=== PATIENT | female | born 1995 | race Caucasian/White ===

== ENCOUNTER 2016-10-04 14:08 | Emergency (ER) | payer MEDICAID ==
--- NOTE | 2016-10-04 15:15 | EDM.PDOC ---
ED HISTORY OF PRESENT ILLNESS - General Chief Complaint: Respiratory Problem Stated Complaint: FRONT AND BACK RIB PAIN/DIFFICULTY BREATHING Time Seen by Provider: 10/04/16 14:32 Source of Information: Reports: Patient, RN notes reviewed - History of Present Illness INITIAL COMMENTS - FREE TEXT/NARRATIVE: 20 year old female comes in with chest pain. This started yesterday. Worse with deep breathing and certain types of motion. Not currently coughing. Denies nasal or sinus abigail, sore throat, fever or chills. No abd pain or recent vomiting. She does smoke. - Related Data Allergies/ADRs: Allergies Allergy/AdvReac Type Severity Reaction Status Date / Time acetaminophen Allergy Swelling Verified 01/10/16 21:05 fluoxetine HCl [From Prozac] Allergy Swelling Verified 08/08/15 09:20 Latex, Natural Rubber Allergy Swelling Verified 08/08/15 09:20 Sulfa (Sulfonamide Allergy Anaphylactic Verified 08/08/15 09:20 Antibiotics) Shock lorazepam [From Ativan] AdvReac Change Verified 08/08/15 09:58 Mental Status Home Meds: Home Meds Escitalopram Oxalate 30 mg PO DAILY 01/10/16 [History] Naltrexone Microspheres [Vivitrol] 380 mg IM ASDIRECTED 01/10/16 [History] Norgestimate-Ethinyl Estradiol [[place]-Linyah 28 Tablet] 1 each PO DAILY 01/10/16 [History] busPIRone [Buspar] 10 mg PO BID 01/10/16 [History] cloNIDine HCl [Clonidine HCl ER] 0.1 mg PO BEDTIME 01/10/16 [History] hydrOXYzine HCl [Atarax] 50 mg PO BEDTIME 01/10/16 [History] risperiDONE [Risperidone] 0.5 mg PO DAILY 01/10/16 [History] Naproxen [Naprosyn] 500 mg PO Q12HR #14 tablet 10/04/16 [Rx] Past Medical History HEENT History: Reports: Impaired vision Other HEENT History: wears eyeglasses, Gastrointestinal History: Reports: GERD Other Gastrointestinal History: states "usually have to take nausea pills alot. 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 Psychiatric History: Reports: Anxiety, Bipolar, Depression, PTSD Other Psychiatric History: states has been prescribed meds for pysch issues but meds have been D/C'd as is allergic to meds. Endocrine/Metabolic History: Reports: Diabetes, type II Other Endocrine/Metabolic History: denies being on meds, "it bottoms out mostly. " Hematologic History: Reports: Anemia, Blood transfusion(s), Iron deficiency Other Hematologic History: had blood transfusion following delivery. - Infectious Disease History Infectious Disease History: Reports: Other (see below) Other Infectious Disease History: states has had staph infection. - Past Surgical History Cardiovascular Surgical History: Reports: Other (see below) Other Cardiovascular Surgeries/Procedures: ASD repair at age 2.5 GI Surgical History: Reports: Hernia, abdominal Social & Family History - Family History Family Medical History: Noncontributory - Tobacco Use Smoking Status *Q: Current Every Day Smoker Years of Tobacco use: 1 Packs/Tins Daily: 0.5 Second Hand Smoke Exposure: No - Caffeine Use Caffeine Use: Reports: Coffee - Alcohol Use Days Per Week of Alcohol Use: 0 - Recreational Drug Use Recreational Drug Use: Yes Drug Use in Last 12 Months: Yes Recreational Drug Type: Reports: Methamphetamine Recreational Drug Use Frequency: Not Used In Over 6 Months ED ROS GENERAL - Review of Systems Review Of Systems: See Below Constitutional: Denies: fever, chills, diaphoresis HEENT: Denies: Rhinitis, Sinus problem, Throat pain Respiratory: Reports: Pleuritic Chest Pain. Denies: Shortness of Breath, Wheezing, Cough Cardiovascular: Reports: Chest pain GI/Abdominal: Denies: Abdominal pain, Nausea, Vomiting Musculoskeletal: Denies: neck pain, shoulder pain Skin: Reports: no symptoms Neurological: Reports: No Symptoms ED EXAM, GENERAL - Physical Exam Exam: See Below Exam Limited By: No limitations General Appearance: alert, no apparent distress Eye Exam: bilateral eye: PERRL Nose: normal inspection Throat/Mouth: Normal inspection, Normal oropharynx Head: atraumatic. No: facial swelling Neck: supple, full range of motion. No: lymphadenopathy (L), lymphadenopathy (R ) Respiratory/Chest: no respiratory distress, lungs clear, normal breath sounds, other (Tender L sternal border, mild tenderness R sternal border, mild tenderness L anterior upper ribs) Cardiovascular: regular rate, rhythm GI/Abdominal: soft, non tender. No: guarding Back Exam: No: CVA tenderness (L), CVA tenderness (R) Extremities: normal inspection. No: pedal edema, leg pain Neurological: alert, oriented, no motor/sensory deficits Skin Exam: Warm, Dry, Normal color Course - Vital Signs Last Recorded V/S: Last Vital Signs Temp 98.4 F 10/04/16 14:27 Pulse 75 10/04/16 14:27 Resp 18 10/04/16 14:27 BP 106/68 10/04/16 14:27 Pulse Ox 99 10/04/16 16:27 - Re-Assessments/Exams Free Text/Narrative Re-Assessment/Exam: 10/05/16 17:02 breath sounds were normal, sats 100 %, afebrile, other vitals normal, CXR not clinically indicated at this time, quite marked parasternal tenderness, discharge instr. as documented. Patient in full agreeement with plan of treatment at time of discharge. I am aware that she did call in later stating naprosyn "does not work for her". She did not inidicate any of that concern while here in the ED. Naprosyn is the right treatment for costochondritis. Discharge instr. as documented. Departure - Departure Time of Disposition: 15:14 Disposition: Home, Self-Care 01 Condition: fair Clinical Impression: Costochondral chest pain Prescriptions: Naproxen [Naprosyn] 500 mg PO Q12HR #14 tablet Instructions: Costochondritis, [id number] Referrals: Siri Desai NP [Primary Care Provider] - Forms: ED Department Discharge Additional Instructions: avoid heavy lifting. Your chest discomfort is chest wall as discussed. Naprosyn 500 mg twice daily for pain and inflamation. This should gradually get better over the next 3 to 5 days, follow up clinic if not resolving as expected , return to ED as needed.
== END 2016-10-04 15:41 | disposition home or self-care (01) ==
LOC: JD.ED 14:08
CPT/HCPCS: 99283; 99284

== ENCOUNTER 2017-01-06 13:21 | Emergency (ER) | payer MEDICAID ==
[2017-01-06 13:33] VITALS: BP 116/77
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
--- NOTE | 2017-01-07 08:37 | CR ---
Left ankle: Four views of the left ankle were obtained. Comparison: No previous exam. Ankle mortise is symmetric. No fracture, dislocation or other bony abnormality is seen. Impression: 1. No abnormality is identified on left ankle exam. Diagnostic code #1
--- NOTE | 2017-01-07 08:37 | CR ---
Left foot: Four views of the left foot were obtained. Shortened fourth metatarsal is seen which appears developmental. Joint spaces are preserved. No acute fracture, dislocation or other bony abnormality is seen. Impression: 1. Shortened fourth metatarsal compatible with developmental change. 2. Left foot study is otherwise unremarkable. Diagnostic code #2
== END 2017-01-06 14:57 | disposition home or self-care (01) ==
LOC: JD.ED 13:21
DX: S90.122A Contusion of left lesser toe(s) without damage to nail, initial encounter (principal); K21.9 Gastro-esophageal reflux disease without esophagitis; F41.9 Anxiety disorder, unspecified; F31.9 Bipolar disorder, unspecified; E11.9 Type 2 diabetes mellitus without complications; F17.210 Nicotine dependence, cigarettes, uncomplicated; Z86.2 Personal history of diseases of the blood and blood-forming organs and certain disorders involving the immune mechanism; Z98.890 Other specified postprocedural states; Z87.442 Personal history of urinary calculi; Z79.899 Other long term (current) drug therapy; Z88.1 Allergy status to other antibiotic agents; Z88.2 Allergy status to sulfonamides; Z88.6 Allergy status to analgesic agent; Z88.8 Allergy status to other drugs, medicaments and biological substances; W01.0XXA Fall on same level from slipping, tripping and stumbling without subsequent striking against object, initial encounter
CPT/HCPCS: 73610-26-LT; 73610-LT; 73630-26-LT; 73630-LT; 99282; 99284

== ENCOUNTER 2017-03-04 17:30 | Emergency (ER) | payer MEDICAID ==
[2017-03-04 18:18] VITALS: BP 104/69
[2017-03-04] MEDS ORDERED: Sodium Chloride 0.9% 10 ML Syringe FLUSH PRN (19:18)
[2017-03-04] MEDS ORDERED: Sodium Chloride 0.9% 1,000 ML IV ONE (19:18)
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
== END 2017-03-04 21:10 | disposition home or self-care (01) ==
LOC: JD.ED 17:30
DX: R10.31 Right lower quadrant pain (principal); K21.9 Gastro-esophageal reflux disease without esophagitis; F31.9 Bipolar disorder, unspecified; E11.9 Type 2 diabetes mellitus without complications; F17.210 Nicotine dependence, cigarettes, uncomplicated; Z86.2 Personal history of diseases of the blood and blood-forming organs and certain disorders involving the immune mechanism; Z98.890 Other specified postprocedural states; Z87.440 Personal history of urinary (tract) infections; Z88.1 Allergy status to other antibiotic agents; Z88.6 Allergy status to analgesic agent; Z88.2 Allergy status to sulfonamides; Z91.040 Latex allergy status; Z88.8 Allergy status to other drugs, medicaments and biological substances; Z79.899 Other long term (current) drug therapy
CPT/HCPCS: 36415; 80053; 81001; 83690; 84703; 85025; 86140; 96360; 99284; J7040; J7050

== ENCOUNTER 2017-03-27 03:00 | Emergency (ER) | payer MEDICAID ==
[2017-03-27 03:10] VITALS: BP 113/73
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
--- NOTE | 2017-03-28 08:38 | CT ---
Head CT Technique: Multiple axial sections through the brain were obtained. Intravenous contrast was not utilized. Comparison: No prior intracranial imaging. Findings: Ventricles along with basal cisterns and sulci over the convexities are within normal limits for the patient's age. No abnormal parenchymal densities are seen. No evidence of intracranial hemorrhage. No midline shift or mass effect is seen. Bone window settings were reviewed which show the visualized sinuses to appear clear. No acute calvarial abnormality is identified. Impression: 1. Nothing acute is identified on noncontrast head CT exam. Diagnostic code #1 Agree with preliminary report issued by [facility] ([facility] preliminary report dictated on 03/27/17, 5:44 AM Central Time)
== END 2017-03-27 04:58 | disposition home or self-care (01) ==
LOC: JD.ED 03:00
DX: O9A.219 Injury, poisoning and certain other consequences of external causes complicating pregnancy, unspecified trimester (principal); S09.90XA Unspecified injury of head, initial encounter; O99.330 Smoking (tobacco) complicating pregnancy, unspecified trimester; F17.210 Nicotine dependence, cigarettes, uncomplicated; O99.619 Diseases of the digestive system complicating pregnancy, unspecified trimester; O99.340 Other mental disorders complicating pregnancy, unspecified trimester; F41.9 Anxiety disorder, unspecified; F32.9 Major depressive disorder, single episode, unspecified; K21.9 Gastro-esophageal reflux disease without esophagitis; Z88.6 Allergy status to analgesic agent; Z88.1 Allergy status to other antibiotic agents; Z88.2 Allergy status to sulfonamides; Z88.8 Allergy status to other drugs, medicaments and biological substances; Z79.899 Other long term (current) drug therapy; Z87.442 Personal history of urinary calculi; Z87.440 Personal history of urinary (tract) infections; Y04.0XXA Assault by unarmed brawl or fight, initial encounter
CPT/HCPCS: 70450; 70450-26; 81025; 99283; 99284-25

== ENCOUNTER 2017-03-31 18:54 | Emergency (ER) | payer MEDICAID ==
[2017-03-31 19:05] VITALS: BP 111/61
[2017-03-31] MEDS ORDERED: Metoclopramide 10 MG/2 ML SDV IM ONE (19:53)
--- NOTE | 2017-03-31 19:55 | EDM.PDOC ---
ED HPI GENERAL MEDICAL PROBLEM - General Chief Complaint: Gastrointestinal Problem Stated Complaint: Nausea, vomiting Time Seen by Provider: 03/31/17 19:40 Source of Information: Reports: Patient, RN Notes Reviewed History Limitations: Reports: No Limitations - History of Present Illness INITIAL COMMENTS - FREE TEXT/NARRATIVE: 21 year old , 2 Para 1, female presents to the ED with complaints of persistent nausea and vomiting. She has been unable to keep any food or fluids down. She was prescribed Zofran by her OBGYN Dr. Lopez but says it 's not working. She has vomited twice today. No lightheadedness or syncope. She denies diarrhea. She has some mild pelvic cramping but no vaginal bleeding or spotting. No fever or chills. Her LMP was 02/22/17. Lower Abdominal Pain Score (Numeric/FACES): 7 - Related Data Allergies Allergy/AdvReac Type Severity Reaction Status Date / Time acetaminophen Allergy Swelling Verified 03/31/17 19:00 azithromycin Allergy Airway Verified 03/31/17 19:00 Tightness fluoxetine HCl [From Prozac] Allergy Swelling Verified 03/31/17 19:00 Latex, Natural Rubber Allergy Swelling Verified 03/31/17 19:00 Sulfa (Sulfonamide Allergy Anaphylactic Verified 03/31/17 19:00 Antibiotics) Shock lorazepam [From Ativan] AdvReac Change Verified 03/31/17 19:00 Mental Status Home Meds: Home Meds Ondansetron HCl [Zofran] 4 mg PO TID 03/31/17 [History] Past Medical History HEENT History: Reports: Impaired Vision, Sinusitis Other HEENT History: wears eyeglasses, Gastrointestinal History: Reports: GERD Other Gastrointestinal History: states "usually have to take nausea pills alot. 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 Neurological History: Reports: Other (See Below) Other Neuro History: syncopal episode on Tuesday was seen in ED Psychiatric History: Reports: Anxiety, Bipolar, Depression, PTSD Other Psychiatric History: states has been prescribed meds for pysch issues but meds have been D/C'd as is allergic to meds. Endocrine/Metabolic History: Reports: Diabetes, Type II Other Endocrine/Metabolic History: denies being on meds, "it bottoms out mostly. " Hematologic History: Reports: Anemia, Blood Transfusion(s), Iron Deficiency Other Hematologic History: had blood transfusion following delivery. - Infectious Disease History Infectious Disease History: Reports: Other (See Below) Other Infectious Disease History: states has had staph infection. - Past Surgical History Cardiovascular Surgical History: Reports: Other (See Below) Other Cardiovascular Surgeries/Procedures: atrial septal defect repair at age 2.5 year GI Surgical History: Reports: Hernia, Abdominal Social & Family History - Family History Family Medical History: Noncontributory - Tobacco Use Smoking Status *Q: Current Every Day Smoker Years of Tobacco use: 1 Packs/Tins Daily: 0.1 Second Hand Smoke Exposure: No - Caffeine Use Caffeine Use: Reports: Soda - Alcohol Use Days Per Week of Alcohol Use: 0 - Recreational Drug Use Recreational Drug Use: No Drug Use in Last 12 Months: Yes Recreational 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 Denies: Abdominal Pain, Constipation, Diarrhea : Reports: Other (pelvic cramping ) ED EXAM - Physical Exam Exam: See Below Exam Limited By: No Limitations General Appearance: Alert, WD/WN, No Apparent Distress Respiratory/Chest: No Respiratory Distress, Lungs Clear, Normal Breath Sounds Cardiovascular: Regular Rate, Rhythm GI/Abdominal Exam: Normal Bowel Sounds, Soft, Non-Tender Neurological: Alert, Oriented, Normal Cognition Course - Vital Signs Last Recorded V/S: Last Vital Signs Temp 97.5 F 03/31/17 19:02 Pulse 61 03/31/17 19:02 Resp 18 03/31/17 19:02 BP 111/61 03/31/17 19:02 Pulse Ox 99 03/31/17 19:02 Orthostatic Blood Pressure [ 106/64 Standing] Orthostatic Blood Pressure [ 104/65 Sitting] Orthostatic Blood Pressure [ 108/63 Supine] - Orders/Labs/Meds Orders: Active Orders 24 hr Category Date Time Status Orthostatic Vital Signs [RC] ASDIRECTED Care 03/31/17 19:54 Active Meds: Medications Discontinued Medications Generic Name Dose Route Start Last Admin Trade Name Freq PRNikko Reason Stop Dose Admin Metoclopramide HCl 7.5 mg 03/31/17 19:53 03/31/17 20:05 Reglan IM 03/31/17 19:54 7.5 mg ONETIME ONE Administration - Re-Assessments/Exams Free Text/Narrative Re-Assessment/Exam: Orthostatic vital signs are WNL, therefore IV fluids are not indicated. She will be given Reglan 7.5mg IM x1 dose. She is to f/u with her OBGYN tomorrow for recheck. Discharge instructions as documented. Departure - Departure Time of Disposition: 20:17 Disposition: Home, Self-Care 01 Condition: Good Clinical Impression: Nausea and vomiting during - Discharge Information Instructions: Nausea and Vomiting, Adult, [id number] Referrals: Mauricio Lopez MD [Primary Care Provider] - Forms: ED Department Discharge Additional Instructions: Your vital signs are stable, therefore you do not require IV fluids Continue your Zofran as prescribed Follow-up with your OBGYN tomorrow Drink plenty of fluids this evening Rest Eat bland diet - My Orders Last 24 Hours: My Active Orders 03/31/17 19:54 Orthostatic Vital Signs [RC] ASDIRECTED - Assessment/Plan Last 24 Hours: My Active Orders 03/31/17 19:54 Orthostatic Vital Signs [RC] ASDIRECTED
== END 2017-03-31 20:27 | disposition home or self-care (01) ==
LOC: JD.ED 18:54
DX: O21.9 Vomiting of pregnancy, unspecified (principal); O99.331 Smoking (tobacco) complicating pregnancy, first trimester; Z3A.01 Less than 8 weeks gestation of pregnancy
CPT/HCPCS: 96372; 99283; J2765

== ENCOUNTER 2017-05-11 18:03 | Emergency (ER) | payer MEDICAID ==
[2017-05-11 18:20] VITALS: BP 101/70
[2017-05-11] MEDS ORDERED: ClonazePAM 0.5 MG Tab PO ONE (19:39)
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
== END 2017-05-11 20:19 | disposition home or self-care (01) ==
LOC: JD.ED 18:03
DX: O99.89 Other specified diseases and conditions complicating pregnancy, childbirth and the puerperium (principal); R10.31 Right lower quadrant pain; M54.5 Low back pain; O24.111 Pre-existing type 2 diabetes mellitus, in pregnancy, first trimester; E11.9 Type 2 diabetes mellitus without complications; Z86.2 Personal history of diseases of the blood and blood-forming organs and certain disorders involving the immune mechanism; Z87.891 Personal history of nicotine dependence; Z3A.11 11 weeks gestation of pregnancy; Z88.1 Allergy status to other antibiotic agents; Z88.6 Allergy status to analgesic agent; Z88.2 Allergy status to sulfonamides; Z88.8 Allergy status to other drugs, medicaments and biological substances
CPT/HCPCS: 99282; 99284

== ENCOUNTER 2017-05-28 11:20 | Emergency (ER) | payer MEDICAID ==
[2017-05-28 11:32] VITALS: BP 112/75
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
== END 2017-05-28 12:26 | disposition home or self-care (01) ==
LOC: JD.ED 11:20
DX: O99.611 Diseases of the digestive system complicating pregnancy, first trimester (principal); K02.9 Dental caries, unspecified; Z88.6 Allergy status to analgesic agent; Z88.1 Allergy status to other antibiotic agents; Z91.040 Latex allergy status; Z88.2 Allergy status to sulfonamides; Z3A.14 14 weeks gestation of pregnancy
CPT/HCPCS: 99283

== ENCOUNTER 2017-05-29 18:30 | Emergency (ER) | payer MEDICAID ==
[2017-05-29 18:55] VITALS: BP 105/74
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
== END 2017-05-29 20:15 | disposition home or self-care (01) ==
LOC: JD.ED 18:30
DX: O99.89 Other specified diseases and conditions complicating pregnancy, childbirth and the puerperium (principal); R51 Headache; Z88.8 Allergy status to other drugs, medicaments and biological substances; Z91.040 Latex allergy status; Z88.2 Allergy status to sulfonamides; Z88.1 Allergy status to other antibiotic agents; Z3A.15 15 weeks gestation of pregnancy
CPT/HCPCS: 99283; 99284

== ENCOUNTER 2017-06-17 21:30 | Emergency (ER) | payer MEDICAID ==
[2017-06-17 21:41] VITALS: BP 128/87
[2017-06-17] MEDS ORDERED: Penicillin V Potassium 500 MG Tab PO ONE (22:43)
--- NOTE | 2017-06-17 22:49 | EDM.PDOC ---
ED HPI GENERAL MEDICAL PROBLEM - General Chief Complaint: ENT Problem Stated Complaint: CLOSE TO 5 MONTHS PG/TOOTHACHE Time Seen by Provider: 06/17/17 22:01 Source of Information: Reports: Patient, RN Notes Reviewed History Limitations: Reports: No Limitations - History of Present Illness INITIAL COMMENTS - FREE TEXT/NARRATIVE: The patient states that she developed upper right dental pain this morning. She states that it radiates to her right ear. No recent oral drainage or fever. She states that she has had similar symptoms in the past, due to cavities. The patient states that she will be 5 months gestation on 07/11/2017. She states that she took Tylenol earlier today. The patient's PCP is Yenny Weiss. Her Agriculture Internship is Dr. Mauricio Lopez. Right Tooth/Teeth Pain Score (Numeric/FACES): 10 - Related Data Allergies Allergy/AdvReac Type Severity Reaction Status Date / Time azithromycin Allergy Airway Verified 06/17/17 21:41 Tightness fluoxetine HCl [From Prozac] Allergy Swelling Verified 06/17/17 21:41 Latex, Natural Rubber Allergy Swelling Verified 06/17/17 21:41 Sulfa (Sulfonamide Allergy Anaphylactic Verified 06/17/17 21:41 Antibiotics) Shock lorazepam [From Ativan] AdvReac Change Verified 06/17/17 21:41 Mental Status Home Meds: Home Meds Ondansetron HCl [Zofran] 4 mg PO TID PRN 03/31/17 [History] Ped Multivit #43/Iron Fumarate [Flintstones Complete Chew Tab] 1 tab PO DAILY [History] Penicillin V Potassium 1 tab PO Q6HR #40 tab 06/17/17 [Rx] Past Medical History HEENT History: Reports: Impaired Vision Other HEENT History: wears eyeglasses Gastrointestinal History: Reports: GERD (untreated) Genitourinary History: Reports: Renal Calculus 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: Reports: : 2 Para: 1 Psychiatric History: Reports: Anxiety (untreated), Bipolar (untreated), Depression (untreated), PTSD (untreated) Hematologic History: Reports: Blood Transfusion(s) (following delivery) - Past Surgical History Cardiovascular Surgical History: Reports: Other (See Below) (ASD closure at 3 years old) GI Surgical History: Reports: Hernia, Abdominal (x 2) Social & Family History - Family History Family Medical History: Noncontributory - Tobacco Use Smoking Status *Q: Never Smoker Second Hand Smoke Exposure: Yes - Caffeine Use Caffeine Use: Reports: None Other Caffeine Use: 1 glass/day - Alcohol Use Alcohol Use History: Yes Alcohol Use Frequency: Socially - Recreational Drug Use Recreational Drug Use: Yes Drug Use in Last 12 Months: Yes Recreational Drug Type: Reports: Methamphetamine (last = 09/10/2016) - Living Situation & Occupation Living situation: Reports: (), with Family Occupation: Unemployed ED ROS ENT - Review of Systems Review Of Systems: See Below Constitutional: Reports: No Symptoms HEENT: Reports: No Symptoms Respiratory: Reports: No Symptoms Endocrine: Reports: No Symptoms GI/Abdominal: Reports: Nausea, Vomiting : Reports: No Symptoms Musculoskeletal: Reports: No Symptoms Skin: Reports: No Symptoms Neurological: Reports: No Symptoms Psychiatric: Reports: No Symptoms Hematologic/Lymphatic: Reports: No Symptoms Immunologic: Reports: No Symptoms ED EXAM, ENT - Physical Exam Exam: See Below Exam Limited By: No Limitations General Appearance: Alert, WD/WN, No Apparent Distress Eye Exam: Bilateral Eye: Normal Inspection Ears: Normal External Exam, Normal Canal, Hearing Grossly Normal, Normal TMs Nose: Normal Inspection, Normal Mucousa, No Blood Mouth/Throat: Normal Inspection, Normal Gums, Normal Lips, Normal Oropharynx, Other (Teeth #1, 2 with fillings. Teeth 14, 15 with fillings. Tooth #30, 31 with fillings. No gingival swelling or pointing seen.) Head: Atraumatic, Normocephalic Neck: Normal Inspection, Supple, Non-Tender, Full Range of Motion. No: Lymphadenopathy (L), Lymphadenopathy (R) Course - Vital Signs Last Recorded V/S: Last Vital Signs Temp 37.5 C 06/17/17 21:39 Pulse 72 06/17/17 21:39 Resp 16 06/17/17 21:39 BP 128/87 06/17/17 21:39 Pulse Ox 97 06/17/17 21:39 - Orders/Labs/Meds Meds: Medications Discontinued Medications Generic Name Dose Route Start Last Admin Trade Name Freq PRN Reason Stop Dose Admin Penicillin V Potassium 500 mg 06/17/17 22:43 06/17/17 22:51 Veetids PO 06/17/17 22:44 500 mg ONETIME ONE Administration - Re-Assessments/Exams Free Text/Narrative Re-Assessment/Exam: 06/17/17 22:45 The patient is complaining of pain to teeth #1 and 2, both of which appear to have fillings. I do not see any obvious infection. Nevertheless, I will treat her with oral penicillin. Because she is , the only pain medication that she can safely take is Tylenol. I will have her follow-up with a dentist this coming week. Departure - Departure Time of Disposition: 22:46 Disposition: Home, Self-Care 01 Condition: Good Clinical Impression: Dentalgia - Discharge Information Prescriptions: Penicillin V Potassium 1 tab PO Q6HR #40 tab Instructions: Dental Caries Referrals: Mauricio Lopez MD [Primary Care Provider] - Forms: ED Department Discharge Additional Instructions: You were seen in the emergency room for upper right dental pain. On examination, no obvious infection is found, however, you have been started on the antibiotic penicillin. Take one tablet every 6 hours, as prescribed. Take [id number] Tylenol as needed for pain. It is important that you follow up with a dentist this coming week. We recommend that you notify the office of Dr. Mauricio Lopez of your ER visit and penicillin prescription. If any other problems, please do not hesitate to return to the ER.
== END 2017-06-17 22:56 | disposition home or self-care (01) ==
LOC: JD.ED 21:30
DX: O99.612 Diseases of the digestive system complicating pregnancy, second trimester (principal); K08.89 Other specified disorders of teeth and supporting structures; Z77.22 Contact with and (suspected) exposure to environmental tobacco smoke (acute) (chronic); Z88.1 Allergy status to other antibiotic agents; Z88.2 Allergy status to sulfonamides; Z88.8 Allergy status to other drugs, medicaments and biological substances; Z91.040 Latex allergy status; Z3A.20 20 weeks gestation of pregnancy
CPT/HCPCS: 99282; A9270; 99283

== ENCOUNTER 2017-11-08 18:36 | Inpatient (IN) | payer MEDICAID ==
[~2017-11-08 18:36] MED LIST: Bupivacaine 0.25% 10 ML SDV ONE; ePHEDrine 50 MG/ML SDV ONE
[2017-11-08] MEDS ORDERED: Sodium Chloride 0.9% 10 ML Syringe FLUSH PRN (19:08)
[2017-11-08] MEDS ORDERED: Oxytocin/Lactated Ringers 10 UNIT/1,000 ML BAG IV SCH (19:15)
[2017-11-08] MEDS: Lactated Ringers 1,000 ML IV SCH ×3 (19:26→21:36)
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
[2017-11-08] MEDS ORDERED: diphenhydrAMINE 50 MG/ML SDV IVPUSH PRN (19:59)
[2017-11-08] MEDS ORDERED: Ondansetron 4 MG/2 ML SDV IVPUSH PRN (19:59)
[2017-11-08] MEDS ORDERED: fentaNYL 100 MCG/2 ML SDV EPIDUR PRN (19:59)
[2017-11-08] MEDS ORDERED: Bupivacaine/fentaNYL/NS 100 ML Bag EPIDUR SCH (20:00)
[2017-11-08] MEDS ORDERED: ePHEDrine 50 MG/ML SDV IVPUSH PRN (20:00)
--- NOTE | 2017-11-08 21:34 | PCM.PREANE ---
Preanesthetic Assessment - Anesthesia/Transfusion/Family Hx Anesthesia History: Prior Anesthesia Without Reaction Family History of Anesthesia Reaction: No - Review of Systems General: No Symptoms Pulmonary: No Symptoms Cardiovascular: No Symptoms Gastrointestinal: No Symptoms Neurological: No Symptoms Other: Reports: Depression, Anxiety (Bipolar) - Physical Assessment Pulse: 99 Blood Pressure: 131/86 Vital Signs: Last Vital Signs Temp Pulse 99 11/08/17 20:00 Resp BP 131/86 11/08/17 20:00 Pulse Ox Height: 1.5 m Weight: 67.585 kg ASA Class: 2 Mental Status: Alert & Oriented x3 Airway Class: Mallampati = 1 Dentition: Reports: Normal Dentition Thyro-Mental Finger Breadths: 3 Mouth Opening Finger Breadths: 3 ROM/Head Extension: Full Lungs: Clear to Auscultation, Normal Respiratory Effort Cardiovascular: Regular Rate, Regular Rhythm - Lab Values: Laboratory Last Values WBC 15.46 K/mm3 (3.98-10.04) H 11/08/17 19:25 RBC 4.29 M/mm3 (3.98-5.22) 11/08/17 19:25 Hgb 12.2 gm/L (11.2-15.7) 11/08/17 19:25 Hct 36.7 % (34.1-44.9) 11/08/17 19:25 MCV 85.5 fl (79.4-94.8) 11/08/17 19:25 MCH 28.4 pg (25.6-32.2) 11/08/17 19:25 MCHC 33.2 g/dl (32.2-35.5) 11/08/17 19:25 RDW Std Deviation 40.9 fL (36.4-46.3) 11/08/17 19:25 Plt Count 203 K/mm3 (182-369) 11/08/17 19:25 MPV 11.3 fl (9.4-12.3) 11/08/17 19:25 Sodium 134 mEq/L (136-145) L 11/08/17 19:25 Potassium 4.0 mEq/L (3.5-5.1) 11/08/17 19:25 Chloride 101 mEq/L (98-107) 11/08/17 19:25 Carbon Dioxide 24 mEq/L (21-32) 05/01/18 19:25 Anion Gap 13.0 (5-15) 11/08/17 19:25 BUN 6 mg/dL (7-18) L 11/08/17 19:25 Creatinine 0.8 mg/dL (0.55-1.02) 11/08/17 19:25 Est Cr Clr Drug Dosing 79.90 mL/min 11/08/17 19:25 Estimated GFR (MDRD) > 60 mL/min (>60) 11/08/17 19:25 BUN/Creatinine Ratio 7.5 (14-18) L 11/08/17 19:25 Glucose 89 mg/dL (74-106) 11/08/17 19:25 Calcium 8.9 mg/dL (8.5-10.1) 11/08/17 19:25 Total Bilirubin 0.3 mg/dL (0.2-1.0) 11/08/17 19:25 AST 15 U/L (15-37) 11/08/17 19:25 ALT 12 U/L (14-59) L 11/08/17 19:25 Alkaline Phosphatase 160 U/L (46-116) H 11/08/17 19:25 Lactate Dehydrogenase 142 U/L (81-234) 11/08/17 19:25 Total Protein 7.2 g/dl (6.4-8.2) 11/08/17 19:25 Albumin 2.9 g/dl (3.4-5.0) L 11/08/17 19:25 Globulin 4.3 gm/dL 11/08/17 19:25 Albumin/Globulin Ratio 0.7 (1-2) L 11/08/17 19:25 - Allergies Allergies/Adverse Reactions: Allergies Allergy/AdvReac Type Severity Reaction Status Date / Time azithromycin Allergy Airway Verified 06/17/17 21:41 Tightness fluoxetine HCl [From Prozac] Allergy Swelling Verified 06/17/17 21:41 Latex, Natural Rubber Allergy Swelling Verified 06/17/17 21:41 Sulfa (Sulfonamide Allergy Anaphylactic Verified 06/17/17 21:41 Antibiotics) Shock lorazepam [From Ativan] AdvReac Change Verified 06/17/17 21:41 Mental Status - Acknowledgements Anesthesia Type Planned: Epidural Pt an Appropriate Candidate for the Planned Anesthesia: Yes Alternatives and Risks of Anesthesia Discussed w Pt/Guardian: Yes Pt/Guardian Understands and Agrees with Anesthesia Plan: Yes PreAnesthesia Questionnaire HEENT History: Reports: Impaired Vision Other HEENT History: wears eyeglasses Cardiovascular History: Reports: Congenital Septal Defect (Repaired at 2.5 years.) Gastrointestinal History: Reports: GERD Other Gastrointestinal History: states "usually have to take nausea pills alot. 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 Neurological History: Reports: Other (See Below) Other Neuro History: syncopal episode 04/2017 Psychiatric History: Reports: Anxiety, Bipolar, Depression, PTSD Other Psychiatric History: states has been prescribed meds for pysch issues but meds have been D/C'd as is allergic to meds. Other Endocrine/Metabolic History: hypoglycemic Hematologic History: Reports: Blood Transfusion(s) (following delivery) Other Hematologic History: had blood transfusion following delivery. - Infectious Disease History Infectious Disease History: Reports: Other (See Below) Other Infectious Disease History: states has had staph infection. - Past Surgical History Cardiovascular Surgical History: Reports: Other (See Below) (ASD closure when 3 years old) GI Surgical History: Reports: Hernia, Abdominal (Hiatal repair x 2) - SUBSTANCE USE Smoking Status *Q: Never Smoker Tobacco Use Within Last Twelve Months: Other (See Below) Second Hand Smoke Exposure: Yes Days Per Week of Alcohol Use: 0 Recreational Drug Use History: Yes Recreational Drug Type: Reports: Methamphetamine (last = 09/10/2016) Recreational Drug Last Use: 09/10/2016 - HOME MEDS Home Medications: Home Meds Ped Multivit #43/Iron Fumarate [Flintstones Complete Chew Tab] 1 tab PO DAILY [History] - CURRENT (IN HOUSE) MEDS Current Meds: Current Medications Diphenhydramine HCl (Benadryl) 25 mg IVPUSH Q6H PRN PRN Reason: Pruritis Ephedrine Sulfate (Ephedrine Sulfate) 5 mg IVPUSH ASDIRECTED PRN PRN Reason: Hypotension Fentanyl (Sublimaze) 100 mcg EPIDUR ONETIME PRN PRN Reason: Pain Last Admin: 11/08/17 20:29 Dose: 100 mcg Fentanyl/Bupivacaine HCl (Fentanyl/Bupivacaine/Ns 2 Mcg-0.125% 100 Ml) 100 ml EPIDUR ASDIRECTED [facility] Last Admin: 11/08/17 20:29 Dose: 100 ml Lactated Ringer's (Ringers, Lactated) 1,000 mls @ 100 mls/hr IV ASDIRECTED [facility] Last Admin: 11/08/17 20:22 Dose: 999 mls/hr Oxytocin/Lactated Ringer's (Pitocin In Lr 10 Units/1,000 Ml) 10 unit in 1,000 mls @ 3,000 mls/hr IV TITRATE BRAY[facility]; Protocol Ondansetron HCl (Zofran) 4 mg IVPUSH ONETIME PRN PRN Reason: Nausea/Vomiting Sodium Chloride (Saline Flush) 10 ml FLUSH ASDIRECTED PRN PRN Reason: Keep Vein Open
[2017-11-09] MEDS ORDERED: Lidocaine 1% 50 ML MDV INJECT STA (00:01)
--- NOTE | 2017-11-09 00:21 | PCM.DEL ---
L & D Note - General Info Date of Service: 11/08/17 Mother's Due Date: 11/27/17 - Delivery Note Labor: Spontaneous Delivery Outcome: Livebirth Infant Delivery Method: Spontaneous Vaginal Delivery-Single Presentation: Left Occiput Anterior (NANDO) Nuchal Cord: None Anesthesia Type: Local, Epidural Anesthetic: Lidocaine (Xylocaine) 1% Plain Local Anesthetic Volume: Other (8 cc) Amniotic Fluid Description: Clear Episiotomy Type: None Laceration: 1st Degree (Midline perineal and right periurethral repaired with 4- 0 Vicryl) Suture type: Vicryl Suture size: 4-0 Placenta: Intact, Spontaneous Cord: 3 Vessels Estimated Blood Loss: 300 Resuscitation Needed: Yes [place]: Bulb Syringe, Stimulated, Warmed, Colman Used, Warmer Used Provider: Mauricio Lopez Score 1 min: 7 Score 5 min: 8 Second Stage Interventions: Reports: Pushing Effectively, Pushing, Pulls Own Legs Back Delivery Comments (Free Text/Narrative):: Stage I: Leelee Oliva was admitted for spontaneous labor. On admission her cervix was dilated to 5 centimeters. She was GBS negative. She was given an epidural for anesthesia. She had artificial rupture membranes with clear fluid. She continued to labor spontaneously and progressed to complete and pushing. Stage II: On 11/08/2017 she had a normal vaginal delivery of a live male infant at 2343. Apgars of 7 & 8. Weight of 3630 g (8 lbs 0 oz). Length of 21 inches. There was no nuchal cord. Infant was delivered in NANDO position. The cord was doubly clamped and cut by myself after 30 seconds. Infant was placed on mother' s abdomen initially but taken to the warmer for additional resuscitation after infant started having some retractions with breathing. Stage III: She had a spontaneous delivery of an intact placenta in Aysha presentation. Three vessel cord. She was given pitocin and fundal massage. She had a first-degree midline perineal and right periurethral laceration that were repaired with running sutures of 4-0 Vicryl. She was given local injection of 8 mL of 1% lidocaine to the right periurethral laceration prior to repair. Mom and baby were stable to recovery. EBL of 300 mL. Mauricio Lopez MD 12:21 AM 11/09/2017 - Patient Data Vitals - Most Recent: Last Vital Signs Temp Pulse 89 11/08/17 22:30 Resp BP 125/72 11/08/17 22:30 Pulse Ox 99 11/08/17 22:00 Weight - Most Recent: 67.585 kg Lab Results Last 24 Hours: Laboratory Results - last 24 hr 11/08/17 11/08/17 11/08/17 Range/Units 19:25 19:25 21:30 WBC 15.46 H (3.98-10.04) K/mm3 RBC 4.29 (3.98-5.22) M/mm3 Hgb 12.2 (11.2-15.7) gm/L Hct 36.7 (34.1-44.9) % MCV 85.5 (79.4-94.8) fl MCH 28.4 (25.6-32.2) pg MCHC 33.2 (32.2-35.5) g/dl RDW Std Deviation 40.9 (36.4-46.3) fL Plt Count 203 (182-369) K/mm3 MPV 11.3 (9.4-12.3) fl Sodium 134 L (136-145) mEq/L Potassium 4.0 (3.5-5.1) mEq/L Chloride 101 (98-107) mEq/L Carbon Dioxide 24 (21-32) mEq/L Anion Gap 13.0 (5-15) BUN 6 L (7-18) mg/dL Creatinine 0.8 (0.55-1.02) mg/dL Est Cr Clr Drug Dosing 79.90 mL/min Estimated GFR (MDRD) > 60 (>60) mL/min BUN/Creatinine Ratio 7.5 L (14-18) Glucose 89 (74-106) mg/dL Calcium 8.9 (8.5-10.1) mg/dL Total Bilirubin 0.3 (0.2-1.0) mg/dL AST 15 (15-37) U/L ALT 12 L (14-59) U/L Alkaline Phosphatase 160 H (46-116) U/L Lactate Dehydrogenase 142 (81-234) U/L Total Protein 7.2 (6.4-8.2) g/dl Albumin 2.9 L (3.4-5.0) g/dl Globulin 4.3 gm/dL Albumin/Globulin Ratio 0.7 L (1-2) Ur Random Creatinine 16.8 L (30.0-125.0) mg/dL U Random Total Protein < 6.0 (0.0-11.8) mg/dL Protein/Creatinin Ratio TNP Urine Opiates Screen (NEGATIVE) Ur Buprenorphine Scrn (NEGATIVE) Ur Oxycodone Screen (NEGATIVE) Urine Methadone Screen (NEGATIVE) Ur Propoxyphene Screen (NEGATIVE) Ur Barbiturates Screen (NEGATIVE) Ur Tricyclics Screen (NEGATIVE) Ur Phencyclidine Scrn (NEGATIVE) Ur Amphetamine Screen (NEGATIVE) U Methamphetamines Scrn (NEGATIVE) U Benzodiazepines Scrn (NEGATIVE) U Cocaine Metab Screen (NEGATIVE) U Marijuana (THC) Screen (NEGATIVE) 11/08/17 Range/Units 21:30 WBC (3.98-10.04) K/mm3 RBC (3.98-5.22) M/mm3 Hgb (11.2-15.7) gm/L Hct (34.1-44.9) % MCV (79.4-94.8) fl MCH (25.6-32.2) pg MCHC (32.2-35.5) g/dl RDW Std Deviation (36.4-46.3) fL Plt Count (182-369) K/mm3 MPV (9.4-12.3) fl Sodium (136-145) mEq/L Potassium (3.5-5.1) mEq/L Chloride (98-107) mEq/L Carbon Dioxide (21-32) mEq/L Anion Gap (5-15) BUN (7-18) mg/dL Creatinine (0.55-1.02) mg/dL Est Cr Clr Drug Dosing mL/min Estimated GFR (MDRD) (>60) mL/min BUN/Creatinine Ratio (14-18) Glucose (74-106) mg/dL Calcium (8.5-10.1) mg/dL Total Bilirubin (0.2-1.0) mg/dL AST (15-37) U/L ALT (14-59) U/L Alkaline Phosphatase (46-116) U/L Lactate Dehydrogenase (81-234) U/L Total Protein (6.4-8.2) g/dl Albumin (3.4-5.0) g/dl Globulin gm/dL Albumin/Globulin Ratio (1-2) Ur Random Creatinine (30.0-125.0) mg/dL U Random Total Protein (0.0-11.8) mg/dL Protein/Creatinin Ratio Urine Opiates Screen Negative (NEGATIVE) Ur Buprenorphine Scrn Negative (NEGATIVE) Ur Oxycodone Screen Negative (NEGATIVE) Urine Methadone Screen Negative (NEGATIVE) Ur Propoxyphene Screen Negative (NEGATIVE) Ur Barbiturates Screen Negative (NEGATIVE) Ur Tricyclics Screen Negative (NEGATIVE) Ur Phencyclidine Scrn Negative (NEGATIVE) Ur Amphetamine Screen Negative (NEGATIVE) U Methamphetamines Scrn Negative (NEGATIVE) U Benzodiazepines Scrn Negative (NEGATIVE) U Cocaine Metab Screen Negative (NEGATIVE) U Marijuana (THC) Screen Negative (NEGATIVE) Med Orders - Current: Current Medications Diphenhydramine HCl (Benadryl) 25 mg IVPUSH Q6H PRN PRN Reason: Pruritis Ephedrine Sulfate (Ephedrine Sulfate) 5 mg IVPUSH ASDIRECTED PRN PRN Reason: Hypotension Fentanyl (Sublimaze) 100 mcg EPIDUR ONETIME PRN PRN Reason: Pain Last Admin: 11/08/17 20:29 Dose: 100 mcg Fentanyl/Bupivacaine HCl (Fentanyl/Bupivacaine/Ns 2 Mcg-0.125% 100 Ml) 100 ml EPIDUR ASDIRECTED [facility] Last Admin: 11/08/17 20:29 Dose: 100 ml Lactated Ringer's (Ringers, Lactated) 1,000 mls @ 100 mls/hr IV ASDIRECTED [facility] Last Admin: 11/08/17 21:36 Dose: 999 mls/hr Oxytocin/Lactated Ringer's (Pitocin In Lr 10 Units/1,000 Ml) 10 unit in 1,000 mls @ 3,000 mls/hr IV TITRATE BRAYAN; Protocol Last Admin: 11/08/17 23:46 Dose: 500 munits/min, 3,000 mls/hr Ondansetron HCl (Zofran) 4 mg IVPUSH ONETIME PRN PRN Reason: Nausea/Vomiting Sodium Chloride (Saline Flush) 10 ml FLUSH ASDIRECTED PRN PRN Reason: Keep Vein Open Discontinued Medications Lidocaine HCl (Xylocaine 1%) 50 ml INJECT NOW STA Stop: 11/09/17 00:02 - Problem List & Annotations (1) 37 weeks gestation of SNOMED Code(s): 71880141 Code(s): Z3A.37 - 37 WEEKS GESTATION OF Status: Acute Current Visit: Yes (2) Rh negative status during SNOMED Code(s): 360264453 Code(s): O09.899 - SUPERVISION OF OTHER HIGH RISK PREGNANCIES, UNSP TRIMESTER ; Z67.91 - UNSPECIFIED BLOOD TYPE, RH NEGATIVE Status: Acute Current Visit: Yes (3) Bipolar 1 disorder SNOMED Code(s): 675754035 Code(s): F31.9 - BIPOLAR DISORDER, UNSPECIFIED Status: Acute Current Visit: Yes (4) Anxiety during , antepartum SNOMED Code(s): 14224687 Code(s): O99.340 - OTH MENTAL DISORDERS COMPLICATING , UNSP TRIMESTER; F41.9 - ANXIETY DISORDER, UNSPECIFIED Status: Acute Current Visit : Yes (5) Depression affecting SNOMED Code(s): 19537925626217 Code(s): O99.340 - OTH MENTAL DISORDERS COMPLICATING , UNSP TRIMESTER; F32.9 - MAJOR DEPRESSIVE DISORDER, SINGLE EPISODE, UNSPECIFIED Status: Acute Current Visit: Yes (6) HSV-2 seropositive SNOMED Code(s): 932962725 Code(s): R76.8 - OTHER SPECIFIED ABNORMAL IMMUNOLOGICAL FINDINGS IN SERUM Status: Acute Current Visit: Yes (7) History of maternal blood transfusion, currently SNOMED Code(s): 857398820 Code(s): O09.299 - SUPRVSN OF PREG W POOR REPRODCTV OR OBSTET HISTORY, UNSP TRI Status: Acute Current Visit: Yes (8) Vaginal delivery SNOMED Code(s): 863134867 Code(s): O80 - ENCOUNTER FOR FULL-TERM UNCOMPLICATED DELIVERY Status: Acute Current Visit: Yes (9) First degree laceration of perineum, delivered, current hospitalization SNOMED Code(s): 210105315 Code(s): O70.0 - FIRST DEGREE PERINEAL LACERATION DURING DELIVERY Status: Acute Current Visit: Yes - Problem List Review Problem List Initiated/Reviewed/Updated: Yes - My Orders Last 24 Hours: My Active Orders 11/08/17 19:08 Patient Status [ADT] Routine Activity as Tolerated [RC] PFP Communication Order [RC] ASDIRECTED Heart Tones [RC] ASDIRECTED Notify Provider [RC] PFP Notify Provider [RC] PRN Peripheral IV Care [RC] . DIRECTED Vital Signs [RC] PER UNIT ROUTINE Sodium Chloride 0.9% [Saline Flush] 10 ml FLUSH ASDIRECTED PRN Electronic Heart Tones Ext w TOCO [WOMSER] Routine Electronic Heart Tones Internal [WOMSER] Per Unit Routine Peripheral IV Insertion Adult [OM.PC] Routine Resuscitation Status Routine 11/08/17 19:15 Lactated Ringers [Ringers, Lactated] 1,000 ml IV ASDIRECTED Oxytocin/Lactated Ringers [Pitocin in LR 10 Units/1,000 ML] 10 unit in 1,000 ml IV TITRATE 11/08/17 21:30 DRUG SCREEN, URINE [URCHEM] Stat PROTEIN/CREATININE RATIO,URINE [URCHEM] Routine 11/08/17 Dinner Clear Liquid Diet [DIET] - Plan Plan:: Admit to inpatient following normal spontaneous vaginal delivery Monitor her vitals per unit protocol Continue lactated Ringer's and Pitocin per unit protocol following delivery of the placenta Continue to monitor lochia Patient with Rh- status and will check infant's blood type and give RhoGAM as indicated Anticipate discharge home on day #2 due to late timing of delivery on 11/08/2017 Mauricio Lopez M.D. 12:24 AM 11/09/2017
[2017-11-09] MEDS ORDERED: Acetaminophen 325 MG Tab PO PRN (00:33)
[2017-11-09] MEDS ORDERED: Oxytocin/Lactated Ringers 10 UNIT/1,000 ML BAG IV SCH (00:33)
[2017-11-09] MEDS ORDERED: Hydrocortisone Acetate 25 MG Supp RECTAL PRN (00:33)
[2017-11-09] MEDS ORDERED: Witch Hazel Medicated Pads 100/Jar TOP PRN (00:33)
[2017-11-09] MEDS ORDERED: Benzocaine/Menthol 20%-0.5% Spray 56 GM Canister TOP PRN (00:33)
[2017-11-09] MEDS ORDERED: Lanolin 100% Cream 7 GM Tube TOP PRN (00:33)
--- NOTE | 2017-11-09 07:30 | PCM48HPAN ---
Post Anesthesia Note - EVALUATION WITHIN 48HRS OF ANESTHETIC Vital Signs in Normal Range: Yes Patient Participated in Evaluation: Yes Respiratory Function Stable: Yes Airway Patent: Yes Cardiovascular Function Stable: Yes Hydration Status Stable: Yes Pain Control Satisfactory: Yes Nausea and Vomiting Control Satisfactory: Yes Mental Status Recovered: Yes Pulse Rate: 89 Blood Pressure: 125/72 - COMMENTS/OBSERVATIONS Free Text/Narrative:: no anesthesia complications noted
[2017-11-09] MEDS: Prenatal Multivitamin with Calcium/Folic Acid/Iron Tab PO SCH (08:26)
[2017-11-09] MEDS: Ibuprofen 600 MG Tab PO PRN ×2 (08:27→18:54)
--- NOTE | 2017-11-09 09:39 | PCM.SN ---
- Free Text/Narrative Note: Post Progress Note PPD # 1 Subjective: Doing well overall. Ambulating without difficulty. Lochia minimal but slightly more than a normal period for her. Voiding without difficulty. Tolerating regular diet without nausea or vomiting. Pain slightly increased this morning but able to be controlled with oral medications. Bottle feeding with minimal difficulty. Objective: Vitals: Vital Signs - 24 hr 11/08/17 11/08/17 11/08/17 18:51 19:00 19:31 Pulse, 86 97 105 H Peripheral Blood Pressure 130/72 141/70 H 112/71 O2 Sat by Pulse Oximetry 11/08/17 11/08/17 11/08/17 20:00 20:30 21:00 Pulse, 99 119 H 94 Peripheral Blood Pressure 131/86 117/62 113/73 O2 Sat by Pulse Oximetry 11/08/17 11/08/17 11/08/17 21:30 21:34 22:00 Pulse, 96 99 93 Peripheral Blood Pressure 109/66 131/86 O2 Sat by Pulse 99 Oximetry 11/08/17 11/09/17 22:30 07:30 Pulse, 89 89 Peripheral Blood Pressure 125/72 125/72 O2 Sat by Pulse Oximetry Physical Exam General: Alert and oriented, no acute distress Lungs: Clear to auscultation bilaterally Heart: Regular rate and rhythm Abdomen: Soft, minimal appropriate tenderness, non-distended, fundus midline, nontender, and below the umbilicus Extremities: No edema Laboratory Results - last 24 hr 11/08/17 11/08/17 11/08/17 Range/Units 19:25 19:25 21:30 WBC 15.46 H (3.98-10.04) K/mm3 RBC 4.29 (3.98-5.22) M/mm3 Hgb 12.2 (11.2-15.7) gm/L Hct 36.7 (34.1-44.9) % MCV 85.5 (79.4-94.8) fl MCH 28.4 (25.6-32.2) pg MCHC 33.2 (32.2-35.5) g/dl RDW Std Deviation 40.9 (36.4-46.3) fL Plt Count 203 (182-369) K/mm3 MPV 11.3 (9.4-12.3) fl Sodium 134 L (136-145) mEq/L Potassium 4.0 (3.5-5.1) mEq/L Chloride 101 (98-107) mEq/L Carbon Dioxide 24 (21-32) mEq/L Anion Gap 13.0 (5-15) BUN 6 L (7-18) mg/dL Creatinine 0.8 (0.55-1.02) mg/dL Est Cr Clr Drug Dosing 79.90 mL/min Estimated GFR (MDRD) > 60 (>60) mL/min BUN/Creatinine Ratio 7.5 L (14-18) Glucose 89 (74-106) mg/dL Calcium 8.9 (8.5-10.1) mg/dL Total Bilirubin 0.3 (0.2-1.0) mg/dL AST 15 (15-37) U/L ALT 12 L (14-59) U/L Alkaline Phosphatase 160 H (46-116) U/L Lactate Dehydrogenase 142 (81-234) U/L Total Protein 7.2 (6.4-8.2) g/dl Albumin 2.9 L (3.4-5.0) g/dl Globulin 4.3 gm/dL Albumin/Globulin Ratio 0.7 L (1-2) Ur Random Creatinine 16.8 L (30.0-125.0) mg/dL U Random Total Protein < 6.0 (0.0-11.8) mg/dL Protein/Creatinin Ratio TNP Urine Opiates Screen (NEGATIVE) Ur Buprenorphine Scrn (NEGATIVE) Ur Oxycodone Screen (NEGATIVE) Urine Methadone Screen (NEGATIVE) Ur Propoxyphene Screen (NEGATIVE) Ur Barbiturates Screen (NEGATIVE) Ur Tricyclics Screen (NEGATIVE) Ur Phencyclidine Scrn (NEGATIVE) Ur Amphetamine Screen (NEGATIVE) U Methamphetamines Scrn (NEGATIVE) U Benzodiazepines Scrn (NEGATIVE) U Cocaine Metab Screen (NEGATIVE) U Marijuana (THC) Screen (NEGATIVE) 11/08/17 Range/Units 21:30 WBC (3.98-10.04) K/mm3 RBC (3.98-5.22) M/mm3 Hgb (11.2-15.7) gm/L Hct (34.1-44.9) % MCV (79.4-94.8) fl MCH (25.6-32.2) pg MCHC (32.2-35.5) g/dl RDW Std Deviation (36.4-46.3) fL Plt Count (182-369) K/mm3 MPV (9.4-12.3) fl Sodium (136-145) mEq/L Potassium (3.5-5.1) mEq/L Chloride (98-107) mEq/L Carbon Dioxide (21-32) mEq/L Anion Gap (5-15) BUN (7-18) mg/dL Creatinine (0.55-1.02) mg/dL Est Cr Clr Drug Dosing mL/min Estimated GFR (MDRD) (>60) mL/min BUN/Creatinine Ratio (14-18) Glucose (74-106) mg/dL Calcium (8.5-10.1) mg/dL Total Bilirubin (0.2-1.0) mg/dL AST (15-37) U/L ALT (14-59) U/L Alkaline Phosphatase (46-116) U/L Lactate Dehydrogenase (81-234) U/L Total Protein (6.4-8.2) g/dl Albumin (3.4-5.0) g/dl Globulin gm/dL Albumin/Globulin Ratio (1-2) Ur Random Creatinine (30.0-125.0) mg/dL U Random Total Protein (0.0-11.8) mg/dL Protein/Creatinin Ratio Urine Opiates Screen Negative (NEGATIVE) Ur Buprenorphine Scrn Negative (NEGATIVE) Ur Oxycodone Screen Negative (NEGATIVE) Urine Methadone Screen Negative (NEGATIVE) Ur Propoxyphene Screen Negative (NEGATIVE) Ur Barbiturates Screen Negative (NEGATIVE) Ur Tricyclics Screen Negative (NEGATIVE) Ur Phencyclidine Scrn Negative (NEGATIVE) Ur Amphetamine Screen Negative (NEGATIVE) U Methamphetamines Scrn Negative (NEGATIVE) U Benzodiazepines Scrn Negative (NEGATIVE) U Cocaine Metab Screen Negative (NEGATIVE) U Marijuana (THC) Screen Negative (NEGATIVE) ASSESSMENT: 22-year-old female G 2 P 2002 s/p normal vaginal delivery PPD #1, complicated by Rh- status, history of blood transfusion, bipolar disorder unmedicated, anxiety and depression , history of drug use PLAN: Doing well Bottle feeding with minimal difficulty. Assist as needed Lochia minimal. Continue to monitor for appropriate lochia. Continue routine care Patient was Rh- blood type and blood type still pending. If baby has Rh+ blood she should be given RhoGAM prior to discharge. Anticipate discharge home tomorrow Mauricio Lopez MD 9:37 AM 11/09/2017
[2017-11-10 05:38] VITALS: BP 106/68
--- NOTE | 2017-11-10 07:56 | PCM.SN ---
- Free Text/Narrative Note: Post Progress Note PPD # 2 Subjective: Doing well overall. Ambulating without difficulty. Lochia minimal and decreasing from yesterday. Reports that lochia is similar to a menstrual cycle. Voiding without difficulty. Tolerating regular diet without nausea or vomiting. Pain controlled with oral medications. Bottle feeding with minimal difficulty. Objective: Vitals: Vital Signs - 24 hr 11/09/17 11/09/17 11/10/17 12:53 20:30 04:45 Temperature 36.7 C 36.9 C Temperature [ 36.9 C 36.7 C Oral] Pulse, 81 Peripheral Pulse, 86 73 Peripheral [ Right Pulse Oximetry] Respiratory 18 16 16 Rate Blood Pressure 112/80 Blood Pressure 110/60 106/68 [Left Upper Arm ] O2 Sat by Pulse 98 98 Oximetry O2 Sat by Pulse 98 Oximetry [Room Air] Physical Exam General: Alert and oriented, no acute distress Lungs: Clear to auscultation bilaterally Heart: Regular rate and rhythm Abdomen: Soft, minimal appropriate tenderness, non-distended, fundus midline, nontender, and below the umbilicus Extremities: Trace edema in bilateral lower extremities to mid shins ASSESSMENT: 22-year-old female G 2 P 2002 s/p normal vaginal delivery PPD #2, complicated by Rh- status, history of blood transfusion, bipolar disorder unmedicated, anxiety and depression , history of drug use PLAN: Doing well Bottle feeding with minimal difficulty. Assist as needed Lochia minimal. Continue to monitor for appropriate lochia. Continue routine care Patient with O negative blood type and blood type is O+. Patient given RhoGAM yesterday. Anticipate discharge home today Mauricio Lopez MD 7:55 AM 11/10/2017
--- NOTE | 2017-11-10 07:58 | PCM.DCSUM1 ---
Discharge Summary - Hospital Course Free Text/Narrative:: Stage I: Leelee Oliva was admitted for spontaneous labor. On admission her cervix was dilated to 5 centimeters. She was GBS negative. She was given an epidural for anesthesia. She had artificial rupture membranes with clear fluid. She continued to labor spontaneously and progressed to complete and pushing. Stage II: On 11/08/2017 she had a normal vaginal delivery of a live male infant at 2343. Apgars of 7 & 8. Weight of 3630 g (8 lbs 0 oz). Length of 21 inches. There was no nuchal cord. Infant was delivered in NANDO position. The cord was doubly clamped and cut by myself after 30 seconds. was placed on mother' s abdomen initially but taken to the warmer for additional resuscitation after infant started having some retractions with breathing. Stage III: She had a spontaneous delivery of an intact placenta in Aysha presentation. Three vessel cord. She was given pitocin and fundal massage. She had a first-degree midline perineal and right periurethral laceration that were repaired with running sutures of 4-0 Vicryl. She was given local injection of 8 mL of 1% lidocaine to the right periurethral laceration prior to repair. Mom and baby were stable to recovery. EBL of 300 mL. HPI Initial Comments: Stage I: Leelee Oliva was admitted for spontaneous labor. On admission her cervix was dilated to 5 centimeters. She was GBS negative. She was given an epidural for anesthesia. She had artificial rupture membranes with clear fluid. She continued to labor spontaneously and progressed to complete and pushing. Stage II: On 11/08/2017 she had a normal vaginal delivery of a live male at 2343. Apgars of 7 & 8. Weight of 3630 g (8 lbs 0 oz). Length of 21 inches. There was no nuchal cord. was delivered in NANDO position. The cord was doubly clamped and cut by myself after 30 seconds. was placed on mother' s abdomen initially but taken to the warmer for additional resuscitation after started having some retractions with breathing. Stage III: She had a spontaneous delivery of an intact placenta in Aysha presentation. Three vessel cord. She was given pitocin and fundal massage. She had a first-degree midline perineal and right periurethral laceration that were repaired with running sutures of 4-0 Vicryl. She was given local injection of 8 mL of 1% lidocaine to the right periurethral laceration prior to repair. Mom and baby were stable to recovery. EBL of 300 mL. Brief History: Stage I: Leelee Oliva was admitted for spontaneous labor. On admission her cervix was dilated to 5 centimeters. She was GBS negative. She was given an epidural for anesthesia. She had artificial rupture membranes with clear fluid. She continued to labor spontaneously and progressed to complete and pushing. Stage II: On 11/08/2017 she had a normal vaginal delivery of a live male at 2343. Apgars of 7 & 8. Weight of 3630 g (8 lbs 0 oz). Length of 21 inches. There was no nuchal cord. was delivered in NANDO position. The cord was doubly clamped and cut by myself after 30 seconds. was placed on mother's abdomen initially but taken to the warmer for additional resuscitation after started having some retractions with breathing. Stage III: She had a spontaneous delivery of an intact placenta in Aysha presentation. Three vessel cord. She was given pitocin and fundal massage. She had a first-degree midline perineal and right periurethral laceration that were repaired with running sutures of 4-0 Vicryl. She was given local injection of 8 mL of 1% lidocaine to the right periurethral laceration prior to repair. Mom and baby were stable to recovery. EBL of 300 mL. - Discharge Data Discharge Date: 11/10/17 Discharge Disposition: Home, Self-Care 01 Condition: Good - Discharge Diagnosis/Problem(s) (1) 37 weeks gestation of SNOMED Code(s): 74083909 ICD Code: Z3A.37 - 37 WEEKS GESTATION OF Status: Acute Current Visit: Yes (2) Rh negative status during SNOMED Code(s): 092124986 ICD Code: O09.899 - SUPERVISION OF OTHER HIGH RISK PREGNANCIES, UNSP TRIMESTER; Z67.91 - UNSPECIFIED BLOOD TYPE, RH NEGATIVE Status: Acute Current Visit: Yes (3) Bipolar 1 disorder SNOMED Code(s): 516012859 ICD Code: F31.9 - BIPOLAR DISORDER, UNSPECIFIED Status: Acute Current Visit: Yes (4) Anxiety during , antepartum SNOMED Code(s): 03271261 ICD Code: O99.340 - OTH MENTAL DISORDERS COMPLICATING , UNSP TRIMESTER; F41.9 - ANXIETY DISORDER, UNSPECIFIED Status: Acute Current Visit : Yes (5) Depression affecting SNOMED Code(s): 64644399707358 ICD Code: O99.340 - OTH MENTAL DISORDERS COMPLICATING , UNSP TRIMESTER; F32.9 - MAJOR DEPRESSIVE DISORDER, SINGLE EPISODE, UNSPECIFIED Status: Acute Current Visit: Yes (6) HSV-2 seropositive SNOMED Code(s): 299148134 ICD Code: R76.8 - OTHER SPECIFIED ABNORMAL IMMUNOLOGICAL FINDINGS IN SERUM Status: Acute Current Visit: Yes (7) History of maternal blood transfusion, currently SNOMED Code(s): 269662051 ICD Code: O09.299 - SUPRVSN OF PREG W POOR REPRODCTV OR OBSTET HISTORY, UNSP TRI Status: Acute Current Visit: Yes (8) Vaginal delivery SNOMED Code(s): 159290302 ICD Code: O80 - ENCOUNTER FOR FULL-TERM UNCOMPLICATED DELIVERY Status: Acute Current Visit: Yes (9) First degree laceration of perineum, delivered, current hospitalization SNOMED Code(s): 097383588 ICD Code: O70.0 - FIRST DEGREE PERINEAL LACERATION DURING DELIVERY Status: Acute Current Visit: Yes - Patient Summary/Data Complications: None Consults: None Hospital Course: Leelee Oliva was admitted for spontaneous labor. On admission her cervix was dilated to 5 cm. She was GBS negative. She was given an epidural for anesthesia. She had artificial rupture of membranes with clear fluid. She progressed to complete and began pushing. On 11/08/2017 she had a normal vaginal delivery of a live male at 2343. Apgars of 7 & 8. Weight of at 3630 g (8 lbs. 0 oz.). Her course was uneventful. Her pain was well controlled and she had minimal lochia. She was ambulating, tolerating a regular diet and voiding normally. She was bottle feeding. She was afebrile and her hematocrit was 36.7 on admission. She desired to be discharged home on the morning of PPD # 2. Her blood type is O- with blood type of O+. She was given RhoGAM on day #1. - Patient Instructions Diet: Regular Diet as Tolerated Activity: As Tolerated Activity, Other: Nothing in the vagina for 6 weeks. Driving: May Drive Today Showering/Bathing: May Shower Notify Provider of: Fever, Increased Pain, Swelling and Redness, Drainage, Nausea and/or Vomiting Other/Special Instructions: Please contact our office if you have heavy vaginal bleeding enough to soak a pad in less than an hour for several hours. - Discharge Plan Home Medications: Home Meds Ped Multivit #43/Iron Fumarate [Flintstones Complete Chew Tab] 1 tab PO DAILY [History] Acetaminophen [Tylenol] 650 mg PO Q6H PRN tablet 11/10/17 [Rx] Benzocaine/Menthol [Dermoplast Pain Relief [place]] 1 spray TOP ASDIRECTED PRN canister 11/10/17 [Rx] Hydrocortisone Acetate [Anucort-HC] 25 mg RECTAL BID PRN supp 11/10/17 [Rx] Ibuprofen [IJD: Ibuprofen] 600 mg PO Q6H PRN tablet 11/10/17 [Rx] Patient Handouts: Home Care Instructions for Mom, Vaginal Delivery, Care After , Care of a Perineal Tear Referrals: Mauricio Lopez MD [Primary Care Provider] - (Follow-up in 1-2 weeks for routine visit or earlier as needed.) - Discharge Summary/Plan Comment DC Time >30 min.: No - Patient Data Vitals - Most Recent: Last Vital Signs Temp 36.7 C 11/10/17 04:45 Pulse 73 11/10/17 04:45 Resp 16 11/10/17 04:45 BP 106/68 11/10/17 04:45 Pulse Ox 98 11/10/17 04:45 Weight - Most Recent: 67.585 kg I&O - Last 24 hours: Intake & Output 11/09/17 11/10/17 11/10/17 22:59 06:59 14:59 Intake Total 480 Balance 480 Lab Results - Last 24 hrs: Laboratory Results - last 24 hr 11/09/17 Range/Units 13:20 Blood Type O NEGATIVE Gel Antibody Screen Positive Screen 2 ros/5 flds - neg RhIG Candidate? Yes Rhogam Indicated Yes, baby rh pos H Med Orders - Current: Current Medications Acetaminophen (Tylenol) 650 mg PO Q6H PRN PRN Reason: mild pain or fever Benzocaine/Menthol (Dermoplast Pain Relief [place]) 0 gm TOP ASDIRECTED PRN PRN Reason: Perineal Comfort Measure Emollient Ointment (Lansinoh Hpa) 0 gm TOP ASDIRECTED PRN PRN Reason: Sore Nipples Hydrocortisone Acetate (Anucort-Hc) 25 mg RECTAL BID PRN PRN Reason: Hemorrhoid pain Oxytocin/Lactated Ringer's (Pitocin In Lr 10 Units/1,000 Ml) 10 unit in 1,000 mls @ 100 mls/hr IV TITRATE [facility]; Protocol Ibuprofen (Motrin) 600 mg PO Q6H PRN PRN Reason: Mild pain or fever Last Admin: 11/09/17 18:54 Dose: 600 mg Prenat Multivit/[place]/Iron/Folic Ac ( Plus Iron) 1 each PO DAILY BRAYAN Last Admin: 11/09/17 08:26 Dose: 1 each Witch Tamra (Tucks) 1 pad TOP ASDIRECTED PRN PRN Reason: Hemorrhoid pain Discontinued Medications Bupivacaine HCl (Sensorcaine-Mpf 0.25%) 10 ml .ROUTE .STK-MED ONE Stop: 11/08/17 16:01 Diphenhydramine HCl (Benadryl) 25 mg IVPUSH Q6H PRN PRN Reason: Pruritis Ephedrine Sulfate (Ephedrine Sulfate) 5 mg IVPUSH ASDIRECTED PRN PRN Reason: Hypotension Ephedrine Sulfate (Ephedrine Sulfate) 50 mg .ROUTE .STK-MED ONE Stop: 11/08/17 16:01 Fentanyl (Sublimaze) 100 mcg EPIDUR ONETIME PRN PRN Reason: Pain Last Admin: 11/08/17 20:29 Dose: 100 mcg Fentanyl/Bupivacaine HCl (Fentanyl/Bupivacaine/Ns 2 Mcg-0.125% 100 Ml) 100 ml EPIDUR ASDIRECTED [facility] Last Admin: 11/08/17 20:29 Dose: 100 ml Lactated Ringer's (Ringers, Lactated) 1,000 mls @ 100 mls/hr IV ASDIRECTED [facility] Last Admin: 11/08/17 21:36 Dose: 999 mls/hr Oxytocin/Lactated Ringer's (Pitocin In Lr 10 Units/1,000 Ml) 10 unit in 1,000 mls @ 3,000 mls/hr IV TITRATE BRAYAN; Protocol Last Admin: 11/08/17 23:46 Dose: 500 munits/min, 3,000 mls/hr Lidocaine HCl (Xylocaine 1%) 50 ml INJECT NOW STA Stop: 11/09/17 00:02 Last Admin: 11/09/17 00:18 Dose: 50 ml Ondansetron HCl (Zofran) 4 mg IVPUSH ONETIME PRN PRN Reason: Nausea/Vomiting Sodium Chloride (Saline Flush) 10 ml FLUSH ASDIRECTED PRN PRN Reason: Keep Vein Open
[2017-11-10] MEDS: Prenatal Multivitamin with Calcium/Folic Acid/Iron Tab PO SCH (08:38)
[2017-11-10] MEDS: Ibuprofen 600 MG Tab PO PRN (08:39)
== END 2017-11-10 10:55 | disposition home or self-care (01) | DRG 775 ==
LOC: JD.OBCHECK 18:36 → JD.OB 18:37 → JD.OBCHECK 19:08 → JD.OB 19:19 → OBSVTOIN 23:44 → JD.OB 23:45
PROVIDERS: ADMIT Obstetrics & Gynecology; ATTEND Obstetrics & Gynecology
PROC: 10E0XZZ Delivery of Products of Conception, External Approach (ICD-10-PCS; principal; 2017-11-08)
PROC: 10907ZC Drainage of Amniotic Fluid, Therapeutic from Products of Conception, Via Natural or Artificial Opening (ICD-10-PCS; 2017-11-08)
PROC: 0HQ9XZZ Repair Perineum Skin, External Approach (ICD-10-PCS; 2017-11-08)
PROC: 00HU33Z Insertion of Infusion Device into Spinal Canal, Percutaneous Approach (ICD-10-PCS; 2017-11-08)
PROC: 3E0R3BZ Introduction of Anesthetic Agent into Spinal Canal, Percutaneous Approach (ICD-10-PCS; 2017-11-08)
DX: O70.0 First degree perineal laceration during delivery (principal); Z3A.37 37 weeks gestation of pregnancy; Z37.0 Single live birth; R76.8 Other specified abnormal immunological findings in serum; Z87.891 Personal history of nicotine dependence; Z88.2 Allergy status to sulfonamides; Z88.8 Allergy status to other drugs, medicaments and biological substances; Z88.1 Allergy status to other antibiotic agents; Z91.040 Latex allergy status
CPT/HCPCS: 36415; 51702; 59025; 59300; 59409; 80053; 80306; 82570; 83615; 84156; 85027; A9270-GY; J2590; J2790; J3010; J7120